=== PATIENT | female | born 1995 | race Caucasian/White ===

== ENCOUNTER 2019-01-23 05:00 | Inpatient (IN) ==
[2019-01-23] MEDS ORDERED: Lidocaine 1% 20 ML MDV ID PRN (05:43)
[2019-01-23] MEDS ORDERED: Famotidine 20 MG/2 ML VIAL IVP PRN (05:43)
[2019-01-23] MEDS ORDERED: *HR* Nalbuphine 10 MG/ML AMPUL IVP PRN (05:43)
[2019-01-23] MEDS ORDERED: Naloxone 0.4 MG/ML INJ IVP PRN ×2 (05:43→08:21)
[2019-01-23] MEDS ORDERED: Ondansetron 4 MG/2 ML VIAL IVP PRN ×2 (05:43→08:21)
[2019-01-23] MEDS ORDERED: Metoclopramide 10 MG/2 ML VIAL IVP PRN (05:43)
[2019-01-23] MEDS ORDERED: miSOPROStol 25 MCG TABLET PO PRN (05:46)
[2019-01-23] MEDS ORDERED: Ringers Solution, Lactated 1,000 ML ONE (05:59)
[2019-01-23 06:01] LABS: Basophils % 0.3 %; Eosinophils # 0.2 K/mcL (0.0-0.6); Eosinophils % 1.6 %; Hematocrit 36.9 % (35.3-44.9); Hemoglobin 11.7 g/dL (11.5-15.4); Immature Granulocytes % 0.4 % (0-4); Lymphocytes # 2.4 K/mcL (0.6-4.6); Lymphocytes % 22.9 %; Mean Corpuscular HGB Conc 31.7 g/dL (31.6-35.5); Mean Corpuscular Hemoglobin 24.9 pg (28.0-33.3); Mean Corpuscular Volume 78.5 fL (83.0-100.0); Mean Platelet Volume 9.8 fL (9.4-12.4); Monocytes # 0.4 K/mcL (0.0-1.3); Monocytes % 3.8 %; Neutrophils # 7.3 K/mcL (1.6-8.9); Platelet Count 325 K/mcL (140-400); Red Cell Distribution Width 16.3 % (11.5-14.5); White Blood Count 10.3 K/mcL (4.3-11.1)
[2019-01-23 06:09] LABS: Amphetamine Screen,Urine Negative ng/mL (Cutoff=1000); Barbiturate Screen,Urine Negative ng/mL (Cutoff=200); Benzodiazepines Screen,Urine Negative ng/mL (Cutoff=200); Cannabinoid Screen,Urine Negative ng/mL (Cutoff = 50); Cocaine Screen,Urine Negative ng/mL (Cutoff= 300); Opiate Screen,Urine Negative ng/mL (Cutoff=300); Phencyclidine Screen,Urine Negative ng/mL (Cutoff=25)
[2019-01-23] MEDS: Ringers Solution, Lactated 1,000 ML IVC SCH ×2 (06:15→14:17)
[2019-01-23] MEDS ORDERED: Ropivacaine/PF 0.2% 20 ML VIAL EP ONE (08:21)
[2019-01-23] MEDS ORDERED: *HR* FentaNYL (PF) 100 MCG/2 ML VIAL EP ONE (08:21)
[2019-01-23] MEDS ORDERED: EPHEDrine 50 MG/ML VIAL IVP PRN (08:21)
--- NOTE | 2019-01-23 08:24 | Anesthesia Evaluation PreOp ---
Date of Encounter: 01/23/19 Time of Encounter: 08:09 - Past History Planned Operation: PRAVIN Cardiac History: Denies any Significant Hx Pulmonary History: Denies Any Significant HX JAVA SUPPORT ENGINEER History: Denies Any Significant HX Other Medical History: Denies Any Significant HX Anesthesia History: No Prior Anesthetic Complications, Past Anesthesia ([place] teeth extraction, no family related anesthetic deaths in history) : Yes Alcohol Use: none Drug use: none Medications and Allergies Tablet 325 mg PO DAILY 01/23/19 [History] Protect Iron Tablet 1 tab PO DAILY 01/23/19 [History] Allergy/AdvReac Type Severity Reaction Status Date / Time No Known Allergies Allergy Verified 01/23/19 05:32 - Meds/Allergy Pre-op Review Medications Reviewed: Yes Allergies Reviewed: Yes Beta Blockers on Current Med List: No Anesthesia Results - Labs 01/23/19 05:35 Anesthesia Exam BP 140/65 P 95 R 16 T 97.4 Height: 5'0" Weight: 115.6kg NPO (# of Hours): 3 Pain Scale: 2 Pain Scale Used: Numeric (1 - 10) - HEENT Pupil (Motor): Pupils equal Mallampati: II Teeth: Normal Oral Opening: Greater than 3 - JAVA SUPPORT ENGINEER LOC: Oriented JAVA SUPPORT ENGINEER Motor: Normal RUE, Normal LUE, Normal RLE, Normal LLE, Normal Face JAVA SUPPORT ENGINEER Sensory: Normal: RUE, LUE, RLE, LLE, Face - Cardiac Rhythm: Regular Murmur: None JVD: No Carotid Bruit: No - Pulmonary Breath Sounds: bilateral Clear Respiratory Effort: Symmetrical Anesthesia Assess/Plan ASA Score: 2 Level of consciousness: Cooperative, Oriented, Tranquil Anesthetic Plan: Epidural Autologous Blood: No Monitoring Plan: Standard Monitors Recovery Plan: Other
[2019-01-23] MEDS ORDERED: Epidural Premix (fent/bupiv) 110 ML EP SCH (08:30)
--- NOTE | 2019-01-23 10:08 | OB/GYN History & Physical ---
Date of Encounter: 01/23/19 Time of Encounter: 10:06 Assessment and Plan (1) 40 weeks gestation of Current visit: Yes Status: Acute Admit for elective IOL (2) NST (non-stress test) reactive Current visit: Yes Status: Acute FHR 130 bpm, moderate variability, +15x15 accels, no decels. (3) Encounter for elective induction of labor Current visit: Yes Status: Acute Dr. Schmitz had previously discussed Cytotec/Whitlock with patient and she is agreeable to double cervical whitlock balloon. - PO Cytotec given, may repeat dose x 1 if needed. -Double cervical whitlock balloon inserted without difficulty. Patient tolerated with minimal discomfort. 60mL sterile water instilled in uterine balloon, 40mL instilled in vaginal balloon. -Recheck cervix in 4 hours. -IV pain medication or epidural when patient desires. -Pitocin augmentation if needed -AROM when appropriate. -Anticipate History of Present Illness Chief complaint: IOL at 40w1d HPI: Ms. Bowman is a 23 year old female who presents for IOL at 40w1d. She is a patient of Dr. Schmitz and denies any complications with her thus far. She reports positive movement and denies vaginal bleeding and fluid leakage. Blood type B+ GBS negative T. Pall negative Rubella Immune Varicella Immune Past Med Surg Social Fam HX - Past Medical History Source: patient Medical history: no medical history Psychiatric history: no psych history - Past Surgical History Additional surgical history: [place] teeth extraction - Social History Smoking Status: Never smoker Alcohol use: none Drug use: none Occupational status: employed Current living situation: Home - Independent Activity Level: Independent ambulation Recent Out of Country Travel Within the Last 8 Weeks: No Exposure or Possible Exposure to Illness During Travel: No - Family History Father Adopted: Yes Living Status: Still Living Hx Family Cardiac Disorders: No Hx Family Respiratory Disorders: No Hx Family Cancer: No Hx Family GI Disorders: No Hx Family Genitourinary Disorders: No Hx Family Endocrine Disorder: No Hx Family Musculoskeletal Disorders: No Hx Family Neuromuscular Disorders: No Hx Family Neurologic Disorders: No Hx Family HEENT Disorders: No Hx Family Autoimmune Disorders: No Hx Family Reproductive Disorders: No Hx Family Psychosocial Disorders: No Hx Family Medical Disorders: No Obstetrical History - Pregnancies : 1 Para: 0 (0) Term: 0 : 0 Ab's: 0 Livin Medications and Allergies Tablet 325 mg PO DAILY 01/23/19 [History] Protect Iron Tablet 1 tab PO DAILY 01/23/19 [History] Allergy/AdvReac Type Severity Reaction Status Date / Time No Known Allergies Allergy Verified 01/23/19 05:32 Review of System OB All systems PM: reviewed and no additional remarkable complaints except as stated Exam - Constitutional Constitutional: well developed, well nourished, no acute distress, average body habitus - HEENT HEENT: Normocephaly, Mucus Membranes Moist - Neck Neck exam: full ROM - Lungs Respiratory exam: CTAB - Cardiovascular Cardiovascular exam: RRR, +S1, +S2 - Breasts Breast: bilateral: normal - Abdomen Abdomen: Present: bowel sounds normal, gravid, non tender - Extremities Extremities exam: full ROM, normal capillary refill, pedal edema - Vulva Vulva: bilateral: normal - Vagina Vagina: Present: normal moisture - Cervix Dilation: 2 Effacement: 50 Station: -3 - Uterus Uterus exam: Present: normal size - Anus/Rectum Anus/Rectum: Present: normal perianal skin Results Result Diagrams: 01/23/19 05:35 Abnormal lab results MCV 78.5 fL (83.0-100.0) L 01/23/19 05:35 MCH 24.9 pg (28.0-33.3) L 01/23/19 05:35 RDW 16.3 % (11.5-14.5) H 01/23/19 05:35 All other labs normal. - VTE Reasons for not Prescribing Prophylaxis: Treatment not Indicated - Low risk for VTE
[2019-01-23] MEDS ORDERED: Oxytocin 20 units/ LR 1000 mL 20 UNIT/1,000 ML BAG IVC SCH (15:00)
[2019-01-23] MEDS ORDERED: *HR* FentaNYL (PF) 100 MCG/2 ML VIAL ONE (16:37)
[2019-01-23] MEDS ORDERED: Ropivacaine/PF 0.2% 20 ML VIAL ONE (16:37)
--- NOTE | 2019-01-23 17:18 | Anesthesia Procedures ---
Date of Encounter: 01/23/19 Time of Encounter: 17:05 Procedures: Anesthesia - Epidural/Spinal Patient ID/Chart reviewed: Yes Patient examined: Yes OB Eval: Gestational age: 40.1 OB Eval: : 1 OB Eval: Hx Para: 0 OB Eval: Dilated at (cm): 4 OB Eval: Contractions: Non-stressed pattern Consent Obtained: Yes Supplemental Oxygen: None/Room Air Site Prep: Aseptic Technique, Sterile prep and drape, Povidone-Iodine 1% Patient position: upright Local Anesthetic: Lidocaine 1% Amount of Local Anesthetic used: 3 Touhy Needle Depth (cm): 7 Catheter Depth at Skin (cm): 14 Test Dose (1.5% Lido + Epi): Volume given (mls): 3 Test Dose Result: Negative Loading Dose: Fentanyl (mcg): 100 Loading Dose: Other: Ropivicaine 0.2% 5ml, 3ml normal saline Loading Dose Administered: Thru Catheter Infusion Med: 0.125% Bupivacaine w/ 2 mcg/ml Fentanyl Infusion Rate (mls/hr): [address]: Tegaderm, Tape Interspace Used: L4-L5 Loss of Resistance (CARLOS EDUARDO): Yes Blood: No CSF: No Paresthesia: No Procedure: PRAVIN placed 1st pass in upright position. CARLOS EDUARDO achieved with normal saline. Catheter threaded with ease to 14cm at the skin. Test dose negative. Pt stated comfort following epidural bolus dose administration. Vitals + FHT's: 1641 BP 108/69 P 87 R 18 1706 BP 120/51 P 73 R 16
--- NOTE | 2019-01-23 18:56 | OB Labor Progress Note ---
Date of Encounter: 01/23/19 Time of Encounter: 18:53 Labor Progress Note - Subjective Subjective: Patient coping well with contractions. Epidural in place but she does feel contractions. - Cervix Cervix: 7/100/-2 - Heart Tones Heart Tones: FHR 130 bpm, moderate variability, +15x15 accels, no decels. - [place]: 2-3 minutes - Interventions Interventions: SVE AROM for moderate amount of clear fluid IUPC placed for accurate contraction monitoring - Plan Plan: Begin Pitocin augmentation to maintain MVU's >200 Anticipate Replace epidural if needed
--- NOTE | 2019-01-23 19:08 | Anesthesia Progress Note ---
Date of Encounter: 01/23/19 Time of Encounter: 18:36 Anesthesia Note - Note Note: Called to patient bedside with complaints of continued discomfort following epidural placement. Ropivicaine 0.5% 5ml administered in attempt to relieve pain unsuccessfully. With patient agreement, this epidural was discontinued and replaced. See epidural note. 01/23/19 19:06
--- NOTE | 2019-01-23 19:13 | Anesthesia Procedures ---
Date of Encounter: 01/23/19 Time of Encounter: 18:36 Procedures: Anesthesia - Epidural/Spinal Patient ID/Chart reviewed: Yes Patient examined: Yes OB Eval: Gestational age: 40.1 OB Eval: : 1 OB Eval: Hx Para: 0 OB Eval: Dilated at (cm): 4 OB Eval: Contractions: Non-stressed pattern Consent Obtained: Yes Supplemental Oxygen: None/Room Air Site Prep: Aseptic Technique, Sterile prep and drape, Povidone-Iodine 1% Patient position: upright Local Anesthetic: Lidocaine 1% Amount of Local Anesthetic used: 3 Touhy Needle Gauge: 18 Touhy Needle Depth (cm): 6 Catheter Depth at Skin (cm): 14 Test Dose (1.5% Lido + Epi): Volume given (mls): 3 Test Dose Result: Negative Loading Dose: Other: Ropivicaine 0.2ml 5ml Loading Dose Administered: Thru Catheter Infusion Med: 0.125% Bupivacaine w/ 2 mcg/ml Fentanyl Infusion Rate (mls/hr): [address]: Tegaderm, Tape Interspace Used: L3-L4 Loss of Resistance (CARLOS EDUARDO): Yes Blood: No CSF: No Paresthesia: No Procedure: PRAVIN placed 1st pass in upright position. CARLOS EDUARDO achieved with normal saline. Catheter threaded with ease to 14cm at the skin. Test dose negative. Pt stated relief with epidural bolus dose. Will follow up for continued relief. Vitals + FHT's: 1836 BP 145/70 P 86 R 18 1856 BP 107/65 P 79 R 16
--- NOTE | 2019-01-23 21:56 | OB Labor Progress Note ---
Date of Encounter: 01/23/19 Time of Encounter: 21:54 Labor Progress Note - Subjective Subjective: Patient comfortable with epidural in place. Able to rest at intervals. - Vital Signs Vital Signs: WNL - Cervix Cervix: Complete/-1 - Heart Tones Heart Tones: 140 bpm, moderate variability, no accels, variable/early decels - [place]: IUPC in place, q2-3 minutes - Interventions Interventions: SVE Repositioned in high fowlers - Plan Physician notified: Yes Physician notified details: Dr. Moreira at nurses station and aware of SVE Plan: Frequent repositioning Increase Pitocin as needed to maintain MVU's >200 Anticipate
--- NOTE | 2019-01-24 01:53 | OB/GYN Procedure Note ---
Delivery - Delivery Date: 01/24/19 Provider: Marium Deutsch Intrapartum events: none Delivery induction: whitlock, misoprostol Delivery augmentation: rupture of membranes, pitocin Delivery monitor: internal FHT, internal uterine Anesthesia: local, epidural Quantitated Blood Loss: 100 - Infant (s) Infant A Infant Delivery Date: 01/24/19 Infant Delivery Time: Presentation: vertex Position: DEBI Route of delivery: Gender: Female Viability: Viable Pounds: 7 Ounces: 5 Weight Gram: 3320 kg at 1 minute: 8 at 5 mins: 9 Shoulder Dystocia: not encountered Specimens collected: cord blood, venous cord gases, arterial cord gases Placenta: spontaneous Cord: nuchal cord, 3 umbilical vessels, nuchal reduced - Repair Episiotomy: none Laceration Description: Perineal - 3rd Degree (repaired by Dr. Moreira) - Complications Delivery complications: none Delivery comments: Called to room when patient was pushing. Under maternal effort, spontaneous delivery of viable female infant over a third-degree perineal laceration. Nuchal cord x 1 noted after delivery of head, easily reduced. Contraction ceased after head delivered and patient with poor pushing effort. Infant was delivered with gentle downward traction but it did take approximately 30 seconds to deliver the entirety of the body due to lack of contraction power. to maternal abdomen for drying and stimulation with little respiratory effort and poor tone noted. Cord clamped and cut immediately and infant taken to warmer with nursery RN in attendance. Spontaneous delivery of intact placenta, Dr. Moreira called to room for repair of 3rd degree perineal laceration. See her procedure note for details. EBL 100 mL's.. No shoulder dystocia or meconium encountered. Cord gases collected, Apgars 8&9 at one and five minutes respectively. Mother and infant in kangaroo care for 2 hour recovery. - Disposition Mom disposition: stable in LDR disposition: stable in LDR
--- NOTE | 2019-01-24 02:16 | OB/GYN Procedure Note ---
OB-SAMPLE PROCESSOR: Procedure - Diagnosis Date of procedure: 01/24/19 Pre-op diagnosis: Third-degree vaginal laceration Post-op diagnosis: same - Procedure Procedure: Repair of third degree laceration Surgeon: Andria Moreira Was there an grants and contracts assistant present: No Anesthesia Type: Local Estimated blood loss (cc): 20 Fluids: other Procedure Complications: None Specimens collected: None Disposition: other Findings: Third-degree laceration Narrative: Pterygium to evaluate third-degree laceration occurred during vaginal delivery. Remainder of the vagina was intact. The vaginal tissue was reapproximated with interrupted 0 Vicryl sutures. Vaginal mucosa was reapproximated in a running and locked fashion. Peritoneum was reapproximated with interrupted 0 Vicryl sutures. Patient was given Nubain for pain management. 10 mL of lidocaine were utilized for local pain management. We had no complications. No specimens were obtained. At the end of the procedure all sponge and lap and needle counts were correct 2.
[2019-01-24] MEDS ORDERED: Lanolin 7 G OINT...G. TP PRN (05:25)
[2019-01-24] MEDS ORDERED: *HR* HYDROcodone/Acet 5/325 mg TABLET PO PRN (05:25)
[2019-01-24] MEDS ORDERED: Acetaminophen 325 MG TABLET PO PRN (05:25)
[2019-01-24] MEDS ORDERED: Benzocaine/Menthol 56 GM AEROSOL SPRAY TP PRN (05:25)
[2019-01-24] MEDS ORDERED: Oxytocin 20 units/ LR 1000 mL 20 UNIT/1,000 ML BAG IVC SCH (05:25)
[2019-01-24] MEDS ORDERED: Benzocaine/Menthol 56 GM AEROSOL SPRAY TP ONE (05:28)
[2019-01-24] MEDS: Ibuprofen 600 MG TABLET PO SCH ×3 (07:44→20:18)
[2019-01-24] MEDS: Prenatal Vit/FA 1 EACH TABLET PO SCH (07:45)
[2019-01-24 20:23] VITALS: BP 97/65
[2019-01-25] MEDS: Ibuprofen 600 MG TABLET PO SCH ×2 (00:30→06:19)
[2019-01-25] MEDS: Prenatal Vit/FA 1 EACH TABLET PO SCH (10:35)
--- NOTE | 2019-01-25 13:07 | Discharge Summary ---
Date of Encounter: 01/25/19 Time of Encounter: 13:04 - Discharge Diagnosis (1) Vaginal delivery Priority: Primary Status: Acute Comments: Feeling well Tolerating regular diet Pain well-controlled with by mouth pain meds Ambulating independently Voiding independently Lochia light Passing flatus, no BM yet Vital signs stable Discharge home today (2) Breast feeding status of mother Priority: Secondary Status: Acute Comments: Community resources provided - Discharge Medications Prescriptions: New Acetaminophen [Tylenol] 650 mg PO Q6H PRN tablet PRN Reason: Mild Pain Ibuprofen [Motrin] 600 mg PO Q6HR #30 tablet Benzocaine/Menthol [place] [Dermoplast [place]] 1 appl TP QID PRN aerosol PRN Reason: See Comments Docusate [Colace] 100 mg PO BID #30 capsule Lanolin [Lansinoh] 1 appl TP TID PRN oint...g. PRN Reason: Sore Nipples Continued Protect Iron Tablet 1 tab PO DAILY Tablet 325 mg PO DAILY Home Medications: Tablet 325 mg PO DAILY 01/23/19 [History] Protect Iron Tablet 1 tab PO DAILY 01/23/19 [History] Acetaminophen [Tylenol] 650 mg PO Q6H PRN tablet 01/25/19 [Rx] Benzocaine/Menthol [place] [Dermoplast [place]] 1 appl TP QID PRN aerosol 01/25/19 [Rx] Docusate [Colace] 100 mg PO BID #30 capsule 01/25/19 [Rx] Ibuprofen [Motrin] 600 mg PO Q6HR #30 tablet 01/25/19 [Rx] Lanolin [Lansinoh] 1 appl TP TID PRN oint...g. 01/25/19 [Rx] Allergies/Adverse Reactions: Allergy/AdvReac Type Severity Reaction Status Date / Time No Known Allergies Allergy Verified 01/23/19 05:32 Data Procedures and tests throughout hospitalization: Laboratory Tests 01/23/19 01/23/19 05:35 05:35 WBC 10.3 RBC 4.70 Hgb 11.7 Hct 36.9 MCV 78.5 L MCH 24.9 L MCHC 31.7 RDW 16.3 H Plt Count 325 MPV 9.8 Immature Gran % 0.4 Seg Neutrophils % 71.0 Lymphocytes % 22.9 Monocytes % 3.8 Eosinophils % 1.6 Basophils % 0.3 Neutrophils # 7.3 Lymphocytes # 2.4 Monocytes # 0.4 Eosinophils # 0.2 Basophils # 0.0 Urine Opiates Screen Negative Ur Buprenorphine Scrn Negative Ur Barbiturates Screen Negative Ur Phencyclidine Scrn Negative Ur Amphetamines Screen Negative U Benzodiazepines Scrn Negative Urine Cocaine Screen Negative U Marijuana (THC) Screen Negative Ur Drug Screen Interp See Below Date of admission: 01/23/19 05:09 Primary care physician: PCP NONE Consults: 01/24/19 05:25 Consult to Sprue Cutting Press Operator [CONS] Routine Comment: Vaginal delivery, consult needed Discharging clinician: Malina Aldana Anticipated date of discharge: 01/25/19 - Patient Status Disposition: Home, Self-Care Condition: Good Functional capacity at discharge: independent ambulation Overall status at discharge: patient is progressing back to baseline - Discharge Instructions Follow Up With: NONE,PCP [Primary Care Provider] - Malina Schmitz MD [Partnered Physician] - - Diet and Activity Activity: increase activity as tolerated Diet: regular diet Hospital Course Reason for admission: induction of labor, IUP at term Delivery: Episiotomy: none Laceration: 3rd degree Other procedures: none complications: none Discharge diagnosis: IUP at term delivered baby: female Time Attestation: Total time spent providing and/or coordinating discharge services: Time Spent: Less than 30 minutes Exam - Constitutional Vitals: Temp Pulse Resp BP Pulse Ox 98.3 F 71 16 97/65 97 01/24/19 19:28 01/24/19 19:28 01/24/19 19:28 01/24/19 19:28 01/24/19 19:28 General appearance IM: A&O X 3 - Respiratory Respiratory exam: Present: CTAB - Cardiovascular Cardiovascular exam IM: Present: RRR - GI/Abdominal GI/Abdominal exam IM: no peritoneal signs - Rectal Rectal exam: deferred - Uterine Tone: Firm Uterus Position: 2 Fingers Below Umbilicus, Midline - Extremities Exam Extremities exam IM: Present: full ROM - Neurological Exam Neurological exam: alert, oriented X3 - Psychiatric Additional comments: Signs and symptoms of depression discussed with patient and partner and both verbalized understanding of when to seek help
== END 2019-01-25 11:30 | disposition home or self-care (01) | DRG 542 ==
LOC: 1NENULAB 05:09 → 1NENUOBS 01-24 05:19
PROVIDERS: ADMIT Student in an Organized Health Care Education/Training Program; ATTEND Student in an Organized Health Care Education/Training Program